=== PATIENT | female | born 1975 | race Two or more races ===

== ENCOUNTER 2024-06-28 12:15 | Emergency (ER) | payer OTHER ==
[~2024-06-28] VITALS: Ht 162.6 cm; Wt 65.8 kg
[2024-06-28] MEDS ORDERED: MILLIPRED5 MG PO (12:57)
[2024-06-28] MEDS ORDERED: LYRICA150 MG PO (12:57)
[2024-06-28] MEDS ORDERED: KETOROLAC TROMETHAMINE 30 MG VIAL IV STA (14:22)
[2024-06-28] MEDS ORDERED: DEXAMETHASONE SODIUM PHOSPHATE 4 MG/ML VIAL IV STA (14:23)
== END 2024-06-28 15:25 | disposition home or self-care (01) ==
LOC: ER 12:16
DX: N21.1 Calculus in urethra (principal); Z87.442 Personal history of urinary calculi
CPT/HCPCS: 96365; 99282; J1100; J1885